=== PATIENT | female | born 1940 | race Caucasian/White ===

== ENCOUNTER 2019-06-20 07:39 | Day surgery (SDC) | payer OTHER ==
[2019-06-20] MEDS ORDERED: EPHEDrine 25 MG/5 ML SYG IV (07:40)
[2019-06-20] MEDS ORDERED: LIDOCAINE 1% (MPF) 30 ML INJ (07:56)
[2019-06-20] MEDS ORDERED: ONDANSETRON 4 MG INJ IV (09:00)
[2019-06-20] MEDS ORDERED: FENTAnyl 50 MCG/ML VIAL IV ×3 (09:00)
[2019-06-20] MEDS ORDERED: HYDROmorphONE 1 MG/5 ML IV SYRINGE IV ×2 (09:00)
[2019-06-20] MEDS ORDERED: FENTAnyl 50 MCG/ML VIAL (09:07)
[2019-06-20] MEDS ORDERED: CEFAZOLIN 1 GM INJ (09:07)
[2019-06-20] MEDS ORDERED: PROPOFOL 20 ML (09:07)
[2019-06-20] MEDS: POLYMYXIN/BACITRACIN 1L IRRIG IRR (09:55)
[2019-06-20] MEDS: BUPIVACAINE 0.5% (SDV) 30 ML INJ (09:55)
[2019-06-20] MEDS: HYDROmorphONE 1 MG/5 ML IV SYRINGE IV (11:02)
== END 2019-06-20 13:33 | disposition home or self-care (01) ==
LOC: SDS 07:39
DX: M20.12 Hallux valgus (acquired), left foot (principal); M21.612 Bunion of left foot; K29.70 Gastritis, unspecified, without bleeding
CPT/HCPCS: 28296; 88304; 88311

== ENCOUNTER 2019-06-26 12:07 | Emergency (ER) | payer OTHER ==
[2019-06-26 13:14] LABS: ADD UMIC YES; UR ASCORBIC ACID NEGATIVE (NEGATIVE); UR BACTERIA FEW /HPF (NONE SEEN); UR BILIRUBIN (Dip) NEGATIVE (NEGATIVE); UR BLOOD (Dip) NEGATIVE (NEGATIVE); UR CLARITY CLOUDY (CLEAR); UR COLOR YELLOW (YELLOW); UR GLUCOSE (Dip) NEGATIVE (NEGATIVE); UR KETONES (Dip) NEGATIVE (NEGATIVE); UR LEUKOCYTE ESTERASE (Dip) 3+ Leu/ul (NEGATIVE); UR NITRITE (Dip) NEGATIVE (NEGATIVE); UR RBC 15 /HPF (0-5); UR SPECIFIC GRAVITY (Dip) 1.014 (1.003-1.030); UR SQUAMOUS EPITHELIAL CELL FEW /HPF (FEW); UR TOTAL PROTEIN (Dip) 2+ mg/dl (NEGATIVE); UR UROBILINOGEN (Dip) 1+ mg/dL (NEGATIVE); UR WBC > 182 /HPF (0-5)
== END 2019-06-26 14:10 | disposition home or self-care (01) ==
LOC: FTE 12:07
DX: N30.00 Acute cystitis without hematuria (principal)
CPT/HCPCS: 81001; 99283